=== PATIENT | male | born 1950 | race Caucasian/White ===

== ENCOUNTER 2016-12-11 11:29 | Emergency (ER) | payer MEDICARE, OTHER ==
[2016-12-11 11:53] VITALS: BP 183/93
[2016-12-11] MEDS ORDERED: KETOROLAC TROMETHAMINE 60 MG/2 ML VIAL IM ONE ×2 (12:12→12:36)
--- OUTSIDE RECORDS SUMMARY | 2016-12-11 12:16 | XMS REPORT | Continuity of Care Document ---
:1950 Author Organization [facility] ([facility]) Address [place] [address] Phone [phone] Care Team Providers Name Role Phone Rajesh Buckner Primary Care Provider [phone] Source Comments This disclosure is being made pursuant to the Care Everywhere program, applicable federal and state laws, and may not contain all informaitonavailable regarding this patient.[facility] ([facility]) Active Allergies and Adverse Reactions No Known Allergies Current Medications Prescription Sig. Disp. Refills Start Date End Date Status amLODIPine 5 mg tablet 1 05/10/2016 Active lisinopril 20 mg tablet 40 mg. 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 Social History Tobacco Use Types Packs/Day Years Used Date Former Smoker Smokeless Tobacco: Never Used Last Filed Vital Signs Vital Sign Reading Time Taken Blood Pressure 145/82 05/12/2016 2:27 PM CDT Pulse 72 05/12/2016 2:27 PM CDT Temperature 37.3 C (99.1 F) 05/12/2016 2:27 PM CDT Respiratory Rate - - Height 1.803 m (5' 10.98") 05/12/2016 2:27 PM CDT Weight 92.534 kg (204 lb) 05/12/2016 2:27 PM CDT Body Mass Index 28.46 05/12/2016 2:27 PM CDT Oxygen Saturation - - Plan of Care Date Type Specialty Providers Description 05/05/2017 Appointment Neurosurgery Alexis Gage MD Chief Comp: Patient [address] [place] [address] [phone] (Fax) Health Maintenance Due Date Last Done Comments HCV Screening 1950 Hepatitis B Vaccine (1 of 3 - Primary Series) 1950 Tdap Vaccine 1960 Lipid Disorder Screening 11/20/1967 Td Vaccine 11/20/1967 Colonoscopy 1999 Prostate Cancer Screening 11/20/1999 Zoster Vaccine 2009 Pneumococcal Vaccine (1 of 2 - PCV13) 2014 Influenza Vaccine: Seasonal (#1) 02/16/2016 Results from Last 3 Months Not on file
--- NOTE | 2016-12-11 12:17 | ERNOTE ---
Lower Extremity HPI - Narrative Date of Service: 12/11/16 - General Lower Extremities Pain: knee: left Time Seen by Provider: 12/11/16 12:03 Source: patient Exam Limitations: no limitations - Immun/Allergies/Home Medications Immunizations: IMMUNIZATION HX Immunizations Up to Date Yes History of Influenza Vaccine Yes Hx Pneumococcal Vaccination Yes Allergies/Adverse Reactions: Allergies Allergy/AdvReac Type Severity Reaction Status Date / Time No Known Allergies Allergy Verified 12/11/16 11:53 Home Medications: HOME MEDICATIONS Amlodipine Besylate [Norvasc] 2.5 mg PO DAILY #30 tab 04/01/16 [Last Taken Unknown] Bisoprol/Hydrochlorothiazide [Ziac 10/6.25MG] 1 tab PO DAILY 04/01/16 [Last Taken 04/01/16] Glimepiride [Amaryl] 2 mg PO DAILY 04/01/16 [Last Taken 04/01/16] Lisinopril [Zestril] 20 mg PO DAILY 04/01/16 [Last Taken 04/01/16] Simvastatin [Zocor] 20 mg PO HS 04/01/16 [Last Taken Unknown] metFORMIN HCL [Glucophage] 1,000 mg PO BIDWM 04/01/16 [Last Taken Unknown] - History of Present Illness Narrative: Pt. comes in with c/o L knee pain for three days since he tripped at work and his knee twisted. Pt. denies any SOB, CP, NVD, numbness, tingling, fever, or recent illness. Pt. 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 Pt. denies any alleviating factors despite taking Tylenol for the pain and states that movement ambulation and palpation exacerbates the pain. Review of Systems - Review of Systems Constitutional: Present: no symptoms reported. Absent: recent illness, fever, chills, weakness, fatigue, malaise EYE: Present: no symptoms reported ENT: Present: no symptoms reported Respiratory: Present: no symptoms reported. Absent: shortness of breath, cough , wheezing Cardiology: Present: no symptoms reported. Absent: chest pain, palpitations, edema Gastrointestinal/Abdominal: Present: no symptoms reported. Absent: nausea, vomiting, diarrhea Genitourinary: Present: no symptoms reported Musculoskeletal: Present: joint pain - L knee Skin: Present: no symptoms reported. Absent: rash, change in color, change in hair/nails Neurological: Present: no symptoms reported. Absent: headache, dizziness/light- headedness, numbness, tingling All Other Systems: All systems neg except as marked - Patient's Past Medical History Patient History - Medical: Diabetes Type 2 Patient History - Cardiac/Respiratory: No pertinent hx Patient History - Cancer: No Hx of Cancer Patient History - Surgical Procedures: Colonoscopy, EGD Patient History - Other: None - Family History Father Family History - Medical: - Social History Living Situations: spouse Abuse History: No History of abuse Psych History: No pertinent hx Smoking Status: Never smoker Alcohol Use: occasionally Drug Use: none - Immunizations Immunizations Up to Date: Yes Hx Pneumococcal Vaccination: Yes History of Influenza Vaccine: Yes Physical Exam - Physical Exam General Appearance: Present: wd/wn, alert, no apparent distress Eye Exam: Normal inspection: bilateral, PERRL: bilateral, EOMI: bilateral Ears, Nose, Throat: Present: normal ENT inspection, normal pharynx Respiratory: Present: no respiratory distress, normal breath sounds, no accessory muscle use, chest nontender, lungs clear Cardiovascular/Chest: Present: regular rate, rhythm, no murmur, normal peripheral pulses Back Exam: Present: normal inspection Extremity Exam: Present: normal range of motion, joint swelling - L knee, other - LCL pain and patella mobility and lateral laxity of LCL edema behind patella and crepitus with motion Neurological Exam: Present: alert, oriented, normal mood/affect, no motor/ sensory deficits Skin Exam: Present: normal color, warm/dry. Absent: pallor, skin rash ED Progress - Vital Signs Patient's Vital Signs:: I have reviewed the patient's vital signs. Vital Signs: Vital Signs 12/11/16 11:42 Temperature 36.7 C Pulse Rate 66 Respiratory 14 Rate Blood Pressure 183/93 O2 Sat by Pulse 97 Oximetry - X-Ray X-Ray #1 X-Ray: knee Interpretation: Reviewed by me X-ray Comments: No acute ossious abnormality - Progress/Reassessment Chief Complaint: Lower Extremity Pain/ Injury Departure Clinical Impression: Sprain of LCL (lateral collateral ligament) of knee Qualifiers: Encounter type: initial encounter Laterality: left Qualified Code(s): S83.422A - Sprain of lateral collateral ligament of left knee, initial encounter Injury of meniscus of left knee Qualifiers: Encounter type: initial encounter Qualified Code(s): S83.8X2A - Sprain of other specified parts of left knee, initial encounter - Departure Disposition: Home self-care Condition: Good Instructions: Combined Knee Ligament Sprain Additional Instructions: Please follow up with Orthopedist as discussed next week. Please use immobilizer at all times. No work until seen by Orthopedist and follow up with work comp on Tuesday. Referrals: Rajesh Buckner DO [Primary Care Provider] -
== END 2016-12-11 13:25 | disposition home or self-care (01) ==
LOC: ER 11:29
PROC: 2W3MX1Z Immobilization of Left Lower Extremity using Splint (ICD-10-PCS; principal; 2016-12-11)
DX: S83.422A Sprain of lateral collateral ligament of left knee, initial encounter (principal); S83.8X2A Sprain of other specified parts of left knee, initial encounter; W01.0XXA Fall on same level from slipping, tripping and stumbling without subsequent striking against object, initial encounter; Y93.9 Activity, unspecified; Y92.9 Unspecified place or not applicable; Y99.0 Civilian activity done for income or pay